=== PATIENT | male | born 1955 | race Caucasian/White ===

== ENCOUNTER → 2016-09-12 | Outpatient (CLI) | payer OTHER ==
--- NOTE | 2016-09-12 13:44 | CR ---
EXAMINATION: Right shoulder HISTORY: Impingement COMPARISON: 09/23/2013 TECHNIQUE: 3 views FINDINGS/IMPRESSION: Moderate acromioclavicular osteoarthritic changes are noted with inferior spurr ing. Mild joint space narrowing and degenerative changes are noted within the glenohumeral joint. Carlos ne mineralization otherwise appears normal without an acute osseous finding.
== END ==
LOC: MW.CHORTHO 07:50
PROVIDERS: ATTEND Orthopaedic Surgery
DX: M75.41 Impingement syndrome of right shoulder (principal); M75.101 Unspecified rotator cuff tear or rupture of right shoulder, not specified as traumatic; M19.011 Primary osteoarthritis, right shoulder
CPT/HCPCS: 73030-26-RT; 73030-RT

== ENCOUNTER 2017-02-19 15:30 | Emergency (ER) | payer OTHER ==
[2017-02-19] MEDS ORDERED: Acetaminophen/HYDROcodone 325-10 MG Tab PO ONE (16:10)
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
[2017-02-19 18:02] VITALS: BP 145/103
--- NOTE | 2017-02-20 11:01 | CR ---
EXAM DATE: 02/19/17 PATIENT'S AGE: 61 Patient: STERLING ARANA Facility: [place], [place] Site . Site : 1955 Study: XRay Shoulder Right [id number]/23/2017 4:56:00 PM Ordering Physician: Neo Solomon Final Report: INDICATION: Pain. COMPARISON: 09/12/2016. FINDINGS/IMPRESSION: No acute fracture, dislocation, or other acute abnormality of the right shoulder is demonstrated. No significant change in right shoulder DJD changes, moderate at the acromioclavicular joint and mild at the glenohumeral joint. Unchanged small chronic-appearing ossified density along the superior aspect of the acromioclavicular joint. Dictated by Ibrahima Mendoza MD @ 02/19/2017 5:43:41 PM Dictated by: Ibrahmia Mendoza MD @ 02/19/2017 17:43:58 (Electronic Signature) Report Signed by Proxy. MTDD
== END 2017-02-19 18:00 | disposition home or self-care (01) ==
LOC: MW.ED 15:30
DX: S49.91XA Unspecified injury of right shoulder and upper arm, initial encounter (principal); I10 Essential (primary) hypertension; Z79.82 Long term (current) use of aspirin; Z79.899 Other long term (current) drug therapy; V89.2XXA Person injured in unspecified motor-vehicle accident, traffic, initial encounter; Y92.410 Unspecified street and highway as the place of occurrence of the external cause
CPT/HCPCS: 73030; 99283; A4566; A9270; 99282

== ENCOUNTER 2024-07-15 16:10 | Emergency (ER) | payer MEDICARE, OTHER ==
[2024-07-15 16:27] VITALS: BP 162/84; PULSE 75
[2024-07-15] MEDS: Methocarbamol 750 MG Tab PO STA (17:21)
[2024-07-15] MEDS: traMADol 50 MG Tab PO STA (17:21)
[2024-07-15 17:47] LABS: APPEARANCE,URINE CLEAR; BILIRUBIN,URINE NEGATIVE (NEGATIVE); COLOR,URINE YELLOW; GLUCOSE,URINE NEGATIVE (NEGATIVE); KETONES,URINE NEGATIVE (NEGATIVE); LEUKOCYTE ESTERASE,URINE NEGATIVE (NEGATIVE); NITRITE,URINE NEGATIVE (NEGATIVE); OCCULT BLOOD,URINE NEGATIVE (NEGATIVE); PROTEIN,URINE NEGATIVE (NEGATIVE); UROBILINOGEN,URINE 0.2 EU/dL (<2.0)
== END 2024-07-15 18:42 | disposition home or self-care (01) ==
LOC: MW.ED 16:10
DX: R10.9 Unspecified abdominal pain (principal); I10 Essential (primary) hypertension; E78.00 Pure hypercholesterolemia, unspecified; Z79.899 Other long term (current) drug therapy; Z75.8 Other problems related to medical facilities and other health care
CPT/HCPCS: 81003; 99284; A9270; 99283